=== PATIENT | female | born 1985 | race African-American/Black ===

== ENCOUNTER 2017-01-25 11:24 | Observation (INO) | payer OTHER ==
[~2017-01-25] VITALS: Ht 162.6 cm; Wt 75.3 kg
[2017-01-25] VITALS (13 sets, daily range): BP systolic 114–141; BP diastolic 71–96
[2017-01-25] MEDS ORDERED: Thrombin 5000 units TOPIC ONE (11:52)
[2017-01-25] MEDS ORDERED: Ropivacaine 5mg/ml Vial 30ml INJ ONE (11:53)
[2017-01-25] MEDS ORDERED: Vancomycin 1gm inj IVPB ONE (11:53)
[2017-01-25] MEDS ORDERED: Surgicel 4in x 8in TOPIC ONE (11:53)
[2017-01-25] MEDS ORDERED: Bacitracin 50000 Units Vial ONE (11:53)
--- NOTE | 2017-01-25 12:08 | Pre-Procedure Note/Attestation ---
Pre-Procedure Note/Attestation Complete Prior to Procedure Procedure Narrative: acdf c67 Indications for Procedure Pre-Operative Diagnosis: cervical radic and hnp Attestation I attest that I discussed the nature of the procedure; its benefits; risks and complications; and alternatives (and the risks and benefits of such alternatives ), prior to the procedure, with the patient (or the patient's legal metals sales representative). I attest that, if there was a reasonable possibility of needing a blood transfusion, the patient (or the patient's legal metals sales representative) was given the [facility] standardized written summary, pursuant to the [place]leen Blood Safety Act ([place] Health and Safety Code # 1645, as amended). I attest that I re-evaluated the patient just prior to the surgery and that there has been no change in the patient's H&P, except as documented below: ADAM RAMIREZ Jan 25, 2017 12:08
[2017-01-25] MEDS ORDERED: NKM (12:18)
[2017-01-25] MEDS ORDERED: Ketorolac 30mg Inj ONE (12:30)
[2017-01-25] MEDS ORDERED: Neostigmine 1mg/ml 10ml Inj ONE (12:30)
[2017-01-25] MEDS ORDERED: LR 1000ml ONE (12:30)
[2017-01-25] MEDS ORDERED: Zemuron 50mg/5ml Inj IV ONE (12:30)
[2017-01-25] MEDS ORDERED: NS Irrig 1000ml ONE (12:30)
[2017-01-25] MEDS ORDERED: Succinylcholine 20mg/ml 10ml vial ONE (12:30)
[2017-01-25] MEDS ORDERED: Midazolam 2mg/2ml Inj ONE (12:30)
[2017-01-25] MEDS ORDERED: Glycopyrrolate 0.2mg/ml 1ml Vial ONE (12:30)
[2017-01-25] MEDS ORDERED: CLINDAMYCIN IV ONE (12:30)
[2017-01-25] MEDS ORDERED: fentaNYL 100 mcg/2 mL IV ONE (12:30)
[2017-01-25] MEDS ORDERED: [UNRECOGNIZED DRUG - OTHER] IV ONE (12:30)
[2017-01-25] MEDS ORDERED: Morphine Sulfate 10mg/ml Inj ONE (12:30)
[2017-01-25] MEDS ORDERED: Propofol 1,000mg/ 100ml btl IV ONE (12:30)
[2017-01-25] MEDS ORDERED: Sterile Water Irrig 1000ml IRRIG ONE (12:30)
--- NOTE | 2017-01-25 13:49 | Anethesia Preoperative Eval ---
Anesthesia Pre-op PMH/ROS General Date of Evaluation: Jan 25, 2017 Time of Evaluation: 12:18 Anesthesiologist: Ernestine ASA Score: ASA 2 Mallampati Score Class I : Soft palate, uvula, fauces, pillars visible Class II: Soft palate, uvula, fauces visible Class III: Soft palate, base of uvula visible Class IV: Only hard plate visible Mallampati Classification: Class II Surgeon: Eddie Diagnosis: Cervical radiculopathy Surgical Procedure: ACDF C5-6-7 Anesthesia History: none Family History: no anesthesia problems Allergies: Coded Allergies: AMPICILLIN (Verified Allergy, Intermediate, rash, fever, 01/25/17) PENICILLINS (Verified Allergy, Intermediate, rash, fever, 01/25/17) Medications: see eMAR Past Medical History Cardiovascular: Denies: HTN, CAD, LA, valve dz, arrhythmia, other Pulmonary: Denies: asthma, COPD, RAQUEL, other Gastrointestinal/Genitourinary: Reports: GERD - mild, Denies: CRI, ESRD, other Neurologic/Psychiatric: Denies: dementia, CVA, depression/anxiety, TIA, other Endocrine: Denies: DM, hypothyroidism, steroids, other HEENT: Denies: cataract (L), cataract (R), glaucoma, [place] (L), [place] (R), other Hematology/Immune: Reports: anemia - mild, Denies: DVT, bleeding disorder, other Musculoskeletal/Integumentary: Denies: OA, RA, DJD, DDD, edema, other PMH Narrative: as above PSxH Narrative: C section x2 Anesthesia Pre-op Phys. Exam Physician Exam Last Vital Signs Date Time Temp Pulse Resp B/P (MAP) Pulse Ox O2 Delivery O2 Flow Rate FiO2 01/25/17 12:11 98.5 88 18 141/95 99 Room Air Constitutional: NAD Neurologic: CN 2-12 intact Cardiovascular: RRR, no M/R/G Respiratory: CTA Gastrointestinal: S/NT/ND Airway Exam Mallampati Score: Class II MO: full Neck: flexible ROM: full Teeth: intact Dentures: no upper, no lower Anesthesia Pre-op A/P Labs see chart Urine Test Test 01/25/17 11:25 Urine HCG, Qualitative Negative Risk Assessment & Plan Assessment: ASA 2 Plan: GA with ETT PONV prevention, neuromonitoring Status Change Before Surgery: No Pre-Antibiotics Drug: Clindamycin 600 mg Given Within 1 Hr of Incision: Yes Time Given: 13:14 STEFAN BRADSHAW M.D. Jan 25, 2017 13:49
[2017-01-25] MEDS ORDERED: Ketorolac 30mg Inj IV PRN (14:00)
[2017-01-25] MEDS ORDERED: DiphenhydrAMINE 50mg/ml Inj IVP PRN (14:00)
[2017-01-25] MEDS ORDERED: Midazolam 2mg/2ml Inj IVP PRN (14:00)
[2017-01-25] MEDS ORDERED: Meperidine 50mg/ml Inj(FOR RIGORS ONLY) IV PRN (14:00)
[2017-01-25] MEDS ORDERED: Hydromorphone 0.5mg/0.5ml inj IVP PRN (14:00)
[2017-01-25] MEDS ORDERED: Metoclopramide 10mg/2ml Inj IVP PRN (14:00)
--- NOTE | 2017-01-25 14:53 | Brief Operative Note ---
Immediate Post Operative Note Operative Note Pre-op Diagnosis: cervical radic and hnp Procedure: ACDF C67 Post-op Diagnosis: same as pre-op Findings: consistent w/pre-op dx studies Surgeon: ASHLEY Geology Scientist: WANDY Anesthesiologist: AUGUSTINE Anesthesia: general Specimen: none Complications: none Condition: stable Fluids: 800CC Estimated Blood Loss: minimal - LESS THAN 50CC Implant(s) used?: No ADAM RAMIREZ Jan 25, 2017 14:53
--- NOTE | 2017-01-25 15:31 | Immediate Post-Op Evaluation ---
Immediate Post-Op Evalulation Immediate Post-Op Evalulation Procedure: ACDF C6-C7 Date of Evaluation: Jan 25, 2017 Time of Evaluation: 15:30 IV Fluids: 1000 Blood Products: none Estimated Blood Loss: <50 Urinary Output: none Blood Pressure Systolic: 118 Blood Pressure Diastolic: 76 Pulse Rate: 86 Respiratory Rate: 20 O2 Sat by Pulse Oximetry: 99 Temperature (Fahrenheit): 97.6 Pain Score (1-10): 2 Nausea: No Vomiting: No Complications none Patient Status: reacts, patent, extubated, none Hydration Status: adequate STEFAN BRADSHAW M.D. Jan 25, 2017 15:31
[2017-01-25] MEDS ORDERED: LR 1000ml 1,000 ML IVLG SCH (16:00)
[2017-01-25] MEDS ORDERED: Naloxone 0.4mg/ml Inj IVP PRN (16:15)
[2017-01-25] MEDS ORDERED: HYDROmorphone 1mg/ml Carpuject SUBQ PRN (16:15)
[2017-01-25] MEDS ORDERED: Norco 5mg/325mg tab ORAL PRN (16:15)
--- NOTE | 2017-01-25 16:22 | Diagnostic Imaging Report ---
Indication: Neck pain radiating down to both shoulders, intraoperative Technique: Digital intraoperative images Comparison: None Findings: Intraoperative images demonstrate a surgical tool projected anterior to the C7 vertebral body. Subsequent images document anterior fusion at C6-7. Impression: Intraoperative imaging, as described
[2017-01-25] MEDS: D5 1/2NS 1,000 ML IV SCH ×2 (19:07→20:00)
[2017-01-25] MEDS: Clindamycin 600mg 50 ML IV SCH (21:09)
[2017-01-26] MEDS: Clindamycin 600mg 50 ML IV SCH ×2 (00:42→05:15)
[2017-01-26 00:54] VITALS: BP 122/85
[2017-01-26 08:00] VITALS: BP 115/78
[2017-01-26] MEDS ORDERED: NORCO 5-325 TA1 EACH ORAL (10:56)
[2017-01-26] MEDS ORDERED: SOMA350 MG PO (10:58)
[2017-01-26 14:35] VITALS: BP 170/65
--- NOTE | 2017-01-26 14:35 | 48 Hour Post Anesthesia Eval ---
Post Anesthesia Evaluation Procedure: ACDF C6-C7 Date of Evaluation: Jan 26, 2017 Time of Evaluation: 14:30 Blood Pressure Systolic: 170 0: 65 Pulse Rate: 70 Respiratory Rate: 14 Temperature (Fahrenheit): 98 O2 Sat by Pulse Oximetry: 99 Airway: patent Nausea: No Vomiting: No Pain Intensity: 0 Hydration Status: adequate Mental Status/LOC: patient returned to baseline Post-Anesthesia Complications: none Follow-up care needed: patient intructions given Dhruv Cardozo M.D. Jan 26, 2017 14:35
--- NOTE | 2017-01-26 20:45 | Operative Note - Dictated ---
DATE OF OPERATION: 01/25/2017 PREOPERATIVE DIAGNOSIS: C6-C7 disk protrusion with stenosis and upper extremity radiculopathy. POSTOPERATIVE DIAGNOSIS: C6-C7 disk protrusion with stenosis and upper extremity radiculopathy. PROCEDURE PERFORMED: 1. Anterior cervical interbody arthrodesis at C6-C7. 2. Anterior cervical instrumentation at C6-C7. 3. Anterior cervical radical diskectomy and decompression of the spinal canal, lateral recess, and foramina. 4. Placement of PEEK interbody device at C6-C7. 5. Placement of allograft and autograft at C6-C7 for arthrodesis. 6. Intraoperative use of fluoroscopy. 7. Intraoperative use of microscope. 8. SSEP and EMG neuromonitoring. SURGEON: Melvin Morgan M.D. MANAGER CASE: Efrem Garcia M.D. ANESTHESIA: General endotracheal anesthesia. ANESTHESIOLOGIST: Americo Sinha M.D. EBL: Less than 50 mL. IV ANTIBIOTICS: 2 g of IV Ancef. COMPLICATIONS: None. BACKGROUND: The patient is a pleasant female, who has failed nonoperative treatments and option for the above treatment was given. Risks, alternatives, and benefits were discussed with the patient. Risks included, but are not limited to anesthesia complications including , medical complications including liver, kidney, cardiopulmonary deficits, bleeding, infection, dysphonia, dysphagia, hematoma, nerve root injury, paralysis, spinal cord injury, CSF leak, dural tear, fracture of the hardware, loosening of the hardware, need for revision, decompression and fusion at adjacent levels or at the same level, swallowing difficulties, esophageal injury, tracheal injury, recurrent laryngeal nerve injury as well as other complications. OPERATIVE FINDINGS: Herniated nucleus pulposus at C6-C7 with spinal cord compression and foraminal stenosis. DESCRIPTION OF OPERATION: The patient was brought into the operating room supine on a stretcher. Appropriate IV lines were placed by the anesthesiologist and 2 g of Ancef was administered. A surgical time-out was called. The patient was induced and intubated without complication. The patient was positioned on the operating room table. The neck was placed in neutral alignment. The arms were tucked by the side. All bony prominences were well padded as well as the four extremities. SSEP and EMG monitoring leads were placed and baseline recordings were done. Preoperative fluoroscopy revealed the planned incision to be on the right side of the neck over C6-C7. The neck was prepped and draped in usual sterile fashion with alcohol, chlorhexidine scrub, ChloraPrep and Ioban draping. At this point, an incision was carried out with the scalpel on the anterior right side of the neck. Hemostasis was achieved with bipolar cautery. The platysma was incised in line with the skin incision. Blunt dissection was carried out in the interval between the strap muscles and sternocleidomastoid. Superficial cervical fascia was dissected caudally and cephalad. The carotid pulse was palpated and found to be well lateral to the field of dissection. Deep cervical fascia was encountered. A blunt dissection was used. The longus coli were found on both sides of the spine and was carefully subperiosteally dissected. A spinal needle was placed and via lateral fluoroscopy, the C6-C7 level was positively identified. greenbelt retractors were set into place. The intraoperatively sterilely draped microscope was used throughout the case, and at this point, with #15 scalpel, a radical diskectomy impaled with the use of straight and curved curettes, #1, #2, and #3 Kerrison punches, and drilling of the posterior aspect of the vertebral bodies was done and saved for later implantation into the interbody space and the PEEK interbody device. At this point, with #1 and #2 Microsect curette, the PLL was carefully removed and a complete decompression of the spinal canal lateral recesses and foramina impaled via #1 and #2 Kerrison punches. There was impingement of the spinal cord and stenosis as well as the foraminal stenosis for the exiting C7 nerve roots. At this point, appropriate trials were used at C6-C7 with a #7 lordotic PEEK interbody device from the spinal element system was chosen packed with [place] allograft and local autograft and tamped into place at C6-C7 with excellent apposition against the endplates and excellent fitting into the C6-C7 level. Once this was done, an appropriately-sized [place] cervical plate was chosen and affixed to the anterior surface of the vertebral bodies at C6 and C7 vertebral bodies with #14 and #12 mm screws. Each screw had excellent purchase and sat below the locking mechanism of the plate well. Copious triple antibiotic solution was used several times throughout the case before and after implantation of the hardware. At this point, final AP and lateral fluoroscopy revealed all instrumentations to be in excellent position. Hemostasis was achieved. The platysma was closed with 3-0 Vicryl sutures. The dermis and subdermal layers were closed with 4-0 Monocryl suture. Dermabond, sterile dressing tape, and cervical collar was placed. The patient was extubated and taken to the recovery room in stable condition and was found to be neurovascularly intact. Melvin Morgan M.D. DR: TASHI JOB#: [id number] CC:
--- NOTE | 2017-02-16 10:28 | Discharge Summary ---
Discharge Summary Hospital Course Date of Admission Jan 25, 2017 at 11:24 Date of Discharge Jan 26, 2017 at 12:00 Admitting Diagnosis HPI Alba Foster is a 31 year old female who was admitted on Jan 25, 2017 at 11:24 for Cervical Radicuolpathy Hospital Course [id number] Discharge Discharge Disposition Patient was discharged to Home (01) Discharge Diagnoses: Rani Weaver NP Feb 16, 2017 10:28
--- NOTE | 2017-02-16 15:15 | Discharge Summary 2 SIG ---
DATE OF ADMISSION: 01/25/2017 DATE OF DISCHARGE: 01/26/2017 BRIEF HOSPITAL COURSE: The patient is a 31-year-old female, who was diagnosed with C6-C7 disk protrusion with stenosis and upper extremity radiculopathy, who has failed nonoperative treatment, was admitted on 01/25/2017 and underwent ACDF on C6-C7. She tolerated procedure well. Postoperatively, the patient was admitted under observation. She was encouraged use of incentive spirometry and was given pain medications. Diet was eventually advanced to postop cervical diet. Vitals have been stable and was ambulating well. She was eventually discharged home to follow up as outpatient. FINAL DIAGNOSES: 1. C6-C7 disk protrusion with stenosis and upper extremity radiculopathy. 2. Status post arterial cervical interbody arthrodesis at C6-C7. 3. Anterior cervical instrumentation at C6-C7. 4. Anterior cervical radical diskectomy and decompression of the spinal canal, lateral recesses, and foramina. Please refer to operative report. OPERATIVE FINDINGS: Herniated nucleus pulposus at C6-C7 with spinal cord compression and foraminal stenosis. DISPOSITION: The patient was discharged home. DISCHARGE MEDICATIONS: Continue with Soma and Elverta 5/325 p.r.n. DISCHARGE INSTRUCTIONS: Follow up as outpatient in a week. Melvin Morgan M.D. I have been assigned to dictate discharge summary on this account and I was not involved in the patient's management. Rani Weaver N.P. DR: ARISTIDES JOB#: [id number] CC:
== END 2017-01-26 12:00 | disposition home or self-care (01) ==
LOC: SDSOVERFLO 11:24 → INTOOBSV 11:24 → 3E 17:39
DX: M50.223 Other cervical disc displacement at C6-C7 level (principal); M54.12 Radiculopathy, cervical region; G62.9 Polyneuropathy, unspecified; K21.9 Gastro-esophageal reflux disease without esophagitis; Z83.3 Family history of diabetes mellitus; Z82.49 Family history of ischemic heart disease and other diseases of the circulatory system; Z88.0 Allergy status to penicillin
CPT/HCPCS: 20930; 20936; 22551; 22853; 36415; 72040; 76001; 81025; 86850; 86900; 86901; 87081; 94760; C1713; J0330; J1170; J1885; J2250; J2270; J2405; J2704; J2710; J2795; J3010; J3370; J7120; 94003; 94150; G0378; S0077